=== PATIENT | male | born 1975 | race Caucasian/White ===

== ENCOUNTER 2017-11-20 22:23 | Emergency (ER) | payer BC ==
[~2017-11-20] VITALS: Ht 185.4 cm; Wt 69.0 kg
[2017-11-20] MEDS ORDERED: CYCL-1 PO (23:06)
[2017-11-20 23:11] VITALS: BP 129/81
== END 2017-11-20 23:13 | disposition home or self-care (01) ==
LOC: ER 22:23
DX: S00.03XA Contusion of scalp, initial encounter (principal); S50.312A Abrasion of left elbow, initial encounter; S80.211A Abrasion, right knee, initial encounter; M62.838 Other muscle spasm; Z88.0 Allergy status to penicillin; Y04.8XXA Assault by other bodily force, initial encounter; Y93.89 Activity, other specified; Y92.89 Other specified places as the place of occurrence of the external cause; Y99.8 Other external cause status
CPT/HCPCS: 72040; 73000; 99284

== ENCOUNTER 2024-01-29 17:57 | Emergency (ER) | payer BC, MEDICAID ==
[~2024-01-29] VITALS: Ht 185.4 cm; Wt 72.0 kg
[~2024-01-29 17:57] MED LIST: CYCL-1 PO
[2024-01-29 17:58] VITALS: BP 117/80; PULSE 92; TEMP 98; O2SAT 100
[2024-01-29] MEDS ORDERED: SULF1TAB49 PO (19:13)
[2024-01-29] MEDS ORDERED: CHLO118L3 TOP (19:13)
[2024-01-29] MEDS: sulfamethoxazole/trimethoprim DS (800/160mg) tablet PO ONE (19:27)
[2024-01-29 19:42] VITALS: RESP 18
== END 2024-01-29 19:43 | disposition home or self-care (01) ==
LOC: ER 17:57
DX: L02.414 Cutaneous abscess of left upper limb (principal); Z88.0 Allergy status to penicillin; Z88.8 Allergy status to other drugs, medicaments and biological substances
CPT/HCPCS: 99283

== ENCOUNTER 2024-04-15 09:59 | Emergency (ER) | payer MEDICAID ==
[~2024-04-15] VITALS: Ht 185.4 cm; Wt 75.0 kg
[~2024-04-15 09:59] MED LIST changes: +CHLO118L3 TOP
[2024-04-15 10:13] LABS: BASOPHILS # (AUTO) 0.2 X10'3 (0-0.2); BASOPHILS % (AUTO) 1.9 % (0-1); EOSINOPHILS # (AUTO) 0.1 X10'3 (0-0.9); EOSINOPHILS % (AUTO) 1.4 % (0-6); HEMATOCRIT 43.9 % (42.0-52.0); HEMOGLOBIN 14.8 g/dl (14.0-17.9); LYMPHOCYTES # (AUTO) 3.4 X10'3 (1.1-4.8); LYMPHOCYTES % (AUTO) 36.4 % (21-51); MEAN CORPUSCULAR HEMOGLOBIN 31.1 PG (27.0-31.0); MEAN CORPUSCULAR HGB CONC 33.8 g/dL (33.0-36.5); MEAN CORPUSCULAR VOLUME 91.9 FL (78-98); MEAN PLATELET VOLUME 7.5 FL (7.4-10.4); MONOCYTES # (AUTO) 0.8 X10'3 (0-0.9); MONOCYTES % (AUTO) 8.7 % (2-12); NEUTROPHILS # (AUTO) 4.8 X10'3 (1.8-7.7); NEUTROPHILS % (AUTO) 51.6 % (42-75); PLATELET COUNT 306 X10'3 (140-440); RED BLOOD COUNT 4.78 X10'6 (4.70-6.10); RED CELL DISTRIBUTION WIDTH 13.7 % (11.5-14.5); WHITE BLOOD COUNT 9.3 X10'3 (4.5-11.0)
[2024-04-15] MEDS: ibuprofen tablet 400 MG TABLET PO ONE (10:26)
[2024-04-15 10:27] VITALS: TEMP 98.6
[2024-04-15] MEDS: LIDOcaine 1% W/epiNEPHrine 1:100,000 20ml vial SQ ONE (11:40)
[2024-04-15 13:29] VITALS: BP 110/79; PULSE 84; RESP 16; O2SAT 100
== END 2024-04-15 13:41 | disposition home or self-care (01) ==
LOC: ER 09:59
DX: S41.111A Laceration without foreign body of right upper arm, initial encounter (principal); F17.200 Nicotine dependence, unspecified, uncomplicated; Z88.0 Allergy status to penicillin; W26.0XXA Contact with knife, initial encounter; Y93.89 Activity, other specified; Y92.89 Other specified places as the place of occurrence of the external cause; Y99.8 Other external cause status
CPT/HCPCS: 12001; 36415; 85025; 99285; J3490; J7030; 12002; A6258; A6446; A6449

== ENCOUNTER 2024-08-20 02:57 | Emergency (ER) | payer MEDICAID ==
[~2024-08-20] VITALS: Ht 185.4 cm; Wt 70.0 kg
[2024-08-20 03:24] LABS: BASOPHILS # (AUTO) 0.1 X10'3 (0-0.2); BASOPHILS % (AUTO) 1.1 % (0-1); EOSINOPHILS # (AUTO) 0.2 X10'3 (0-0.9); EOSINOPHILS % (AUTO) 2.6 % (0-6); HEMATOCRIT 41.3 % (42.0-52.0); HEMOGLOBIN 13.7 g/dl (14.0-17.9); LYMPHOCYTES # (AUTO) 2.3 X10'3 (1.1-4.8); LYMPHOCYTES % (AUTO) 27.6 % (21-51); MEAN CORPUSCULAR HEMOGLOBIN 29.8 PG (27.0-31.0); MEAN CORPUSCULAR HGB CONC 33.2 g/dL (33.0-36.5); MEAN CORPUSCULAR VOLUME 89.7 FL (78-98); MEAN PLATELET VOLUME 7.5 FL (7.4-10.4); MONOCYTES # (AUTO) 0.7 X10'3 (0-0.9); MONOCYTES % (AUTO) 8.1 % (2-12); NEUTROPHILS % (AUTO) 60.6 % (42-75); PLATELET COUNT 276 X10'3 (140-440); WHITE BLOOD COUNT 8.3 X10'3 (4.5-11.0)
[2024-08-20 03:38] LABS: ALANINE AMINOTRANSFERASE 20 U/L (12-78); ALBUMIN 3.8 G/DL (3.4-5.0); ALBUMIN/GLOBULIN RATIO 1.1 (1.1-1.5); ALKALINE PHOSPHATASE 72 IU/L (46-116); ANION GAP 7 (8-16); ASPARTATE AMINO TRANSFERASE 19 U/L (10-37); BILIRUBIN,TOTAL 0.2 MG/DL (0.1-1.0); BLOOD UREA NITROGEN 13 MG/DL (7-18); BUN/CREATININE RATIO 11.3 (10.0-20.0); CALCIUM 8.7 MG/DL (8.5-10.1); CHLORIDE 104 MMOL/L (99-107); CREATININE 1.15 MG/DL (0.60-1.10); GLUCOSE 110 MG/DL (70-104); POTASSIUM 3.4 MMOL/L (3.5-5.1); SODIUM 141 MMOL/L (135-145); TOTAL CARBON DIOXIDE 30.1 MMOL/L (24-32); TOTAL PROTEIN 7.4 G/DL (6.4-8.2); eCRCL 79 ML/MIN; eGFR 68 ML/MIN
[2024-08-20 04:57] VITALS: BP 127/82; PULSE 74; O2SAT 99
--- NOTE | 2024-08-20 05:05 | Physician Documentation ---
History of Present Illness ~ Chief Complaint: Knee Pain Stated Complaint: INFECTION Time Seen by MD: 05:03 HPI Patient presents to the emergency room with concerns of some red streaks associated with a small abscess to his right knee. No limited to range of motion. Patient states symptoms began about a week ago with an abscess that formed to his lateral right knee however that improved and he had another one developed not far away. No fevers. Tetanus reported to be up-to-date. No traumas Tetanus witin 5 years: Yes Medication Reconciliation Allergies: Coded Allergies: Penicillins (Unverified Allergy, Unknown, 04/15/24) Scheduled Chlorhexidine Gluconate (Chlorhexidine Gluconate), 1 APPLIC TOP DAILY Scheduled PRN Cyclobenzaprine* (Cyclobenzaprine*), 1 TABLET PO Q8H PRN for muscle spasms Review of Systems ROS All review of systems negative except as per HPI Physical Exam Vital Signs: Temperature: 98.3, Source: Oral, Heart Rate: 74, Respiratory Rate: 12, BP: 127/82, Pulse Oximetry: 99, Weight: 69.950 Oxygen Flow Rate: 0 Physical Exam General: Patient is awake, alert, oriented x4 in no acute distress Head: Normocephalic and atraumatic. Eyes: Conjunctival normal. EOMI. PERRL. ENT: Mucous membranes moist. Neck: Supple, trachea is midline. Chest: Clear to auscultation bilaterally without rales, rhonchi, or wheezes. There is no accessory muscle use or retractions. Cardiac: RRR without murmurs, gallops, or rubs. Extremities: Left lower extremity normal, right lower extremity neurovascularly intact with some cellulitis associated with a 0.5 cm x 0.5 cm abscess to his lateral right knee with some toxic striations climbing up the medial right thigh. Able to move knee without limitations. Procedures Procedures Incision and drainage: Status post informed verbal consent patient was sterilely cleaned and draped. Patient is anesthetized with 0.5 cc of lidocaine with epinephrine. Small 0.5 cm incision made with an 11 blade to patient's abscess with small amount of purulent drainage expressed. Patient tolerated procedure well without complication. Total time of procedure 4 minutes. Progress Results/Orders Results/Orders Completed Orders - ALEXIS CHANCE MD Cbc/Diff (08/20/24 03:04) CMP (08/20/24 03:04) Vital Signs 08/20/24 08/20/24 08/20/24 08/20/24 03:00 04:03 04:57 05:41 Temp 98.3 98.3 Pulse 83 85 74 Resp 16 14 12 14 B/P (MAP) 132/94 147/92 (110) 127/82 (97) Pulse Ox 100 99 99 O2 Flow Rate 0 0 0 Laboratory Tests Test 08/20/24 03:10 White Blood Count 8.3 Red Blood Count 4.60 L Hemoglobin 13.7 L Hematocrit 41.3 L Mean Corpuscular Volume 89.7 Mean Corpuscular Hemoglobin 29.8 Mean Corpuscular Hemoglobin Concent 33.2 Red Cell Distribution Width 15.0 H Platelet Count 276 Mean Platelet Volume 7.5 Neutrophils (%) (Auto) 60.6 Lymphocytes (%) (Auto) 27.6 Monocytes (%) (Auto) 8.1 Eosinophils (%) (Auto) 2.6 Basophils (%) (Auto) 1.1 H Neutrophils # (Auto) 5.0 Lymphocytes # (Auto) 2.3 Monocytes # (Auto) 0.7 Eosinophils # (Auto) 0.2 Basophils # (Auto) 0.1 CBC Comment Sodium Level 141 Potassium Level 3.4 L Chloride Level 104 Carbon Dioxide Level 30.1 Anion Gap 7 L Blood Urea Nitrogen 13 Creatinine 1.15 H Estimated GFR/1.73 m2 68 BUN/Creatinine Ratio 11.3 Glucose Level 110 H Calcium Level 8.7 Total Bilirubin 0.2 Aspartate Amino Transf (AST/SGOT) 19 Alanine Aminotransferase (ALT/SGPT) 20 Alkaline Phosphatase 72 Total Protein 7.4 Albumin 3.8 Globulin 3.6 Albumin/Globulin Ratio 1.1 Chemistry Comments Medical Decision Making Findings Patient presented to the emergency room with leg infection as per HPI. Differentials include but are not limited to cellulitis, abscess, folliculitis, septic arthritis. Given patient has full range of motion I do not feel he requires workup for septic arthritis. Patient is status post incision and drainage and we have started him on antibiotics. Tetanus reported to be up-to-date. Departure Disposition: HOME / SELF CARE / HOMELESS Impression: Primary Impression: Cellulitis Additional Impression: Abscess Condition: Stable Discharge Instructions: Cellulitis, Adult, [id number] Referrals: NO PRIMARY CARE PROVIDER (PCP) Prescriptions Sulfamethoxazole/Trimethoprim (Bactrim Ds Tablet) 800 Mg-160 Mg Tablet 1 TAB PO Q12H for 10 Days, #20 TAB Prov: ALEXIS CHANCE MD 08/20/24 Education Educated: Patient Educated regarding: diagnosis, treatment, need for follow up Signature Scribe Signature: No scribe Attestation: The note accurately reflects work and decisions made by me.Alexis Chance MD 08/20/24 05:51 ALEXIS CHANCE MD August 20, 2024 05:05
[2024-08-20 05:41] VITALS: RESP 14
[2024-08-20] MEDS ORDERED: SULF1TAB49 PO (05:51)
[2024-08-20] MEDS: ondansetron 4mg rapidly disintigrating tab PO ONE (05:56)
[2024-08-20] MEDS: bacitracin 15gm ointment TP ONE (05:56)
[2024-08-20] MEDS: sulfamethoxazole/trimethoprim DS (800/160mg) tablet PO ONE (05:56)
[2024-08-20 05:59] VITALS: TEMP 98.3
== END 2024-08-20 06:02 | disposition home or self-care (01) ==
LOC: ER 02:58
DX: L03.115 Cellulitis of right lower limb (principal); L02.415 Cutaneous abscess of right lower limb
CPT/HCPCS: 10060; 36415; 80053; 85025; 99284